=== PATIENT | male | born 1970 | race Caucasian/White ===

== ENCOUNTER 2023-07-26 21:16 | Emergency (ER) | payer BC, SELFPAY ==
[2023-07-26 21:24] VITALS: BP 123/76; PULSE 106; RESP 18; TEMP 36; O2SAT 97; BMI 33.5
--- NOTE | 2023-07-26 21:40 | ED_ITS ---
HPI - Skin/Abscess/Foreign Bdy General Date Seen: 07/26/23 Chief complaint: Skin/Abscess/Foreign Body Stated complaint: Discoloration- slightly painful Source: patient Mode of arrival: ambulatory Limitations: no limitations History of Present Illness HPI narrative: Patient is a 52-year-old male presented emergency department for potential infection to his left hand. He states yesterday he was splinted go through his glove. They removed all knee feels like it all came out. He has no pain at this time. It was near the thumb the nose today there is swelling and erythema in that area. again he has no pain and has full range of motion it came to be evaluated. Related Data Home Medications Medication Instructions Recorded Confirmed No Known Home Medications 08/17/22 08/17/22 Allergies Allergy/AdvReac Type Severity Reaction Status Date / Time penicillin V Allergy Verified 08/17/22 14:56 Review of Systems Narrative: Negative unless stated in HPI PFSH PFSH Surgical History H/O hernia repair ?Z98.890 - Other specified postprocedural states (ICD-10) ?Z87.19 - Personal history of other diseases of the digestive system (ICD-10) Social History Smoking Status: Current every day smoker What tobacco products do you use: cigarettes Do you use any of these nicotine containing products: None Second hand tobacco smoke exposure: No How often do you have a drink containing alcohol: never AUDIT-C Alcohol total score: 0 Non-prescribed substance use: denies use Exam Narrative: Exam Narrative: Const: Well-nourished, Well-developed, in no distress Eyes: PERRL, no conjunctival injection, and symmetrical lids HENT: Atraumatic external nose and ears. Moist mucous membranes. MSK:Extremities w/o deformity, Normal Active ROM, no tenderness to palpation, no swelling of the hand noted Skin: Warm, Dry. No rashes or lesions. Erythema seen to the thenar eminence Neuro: Normal Muscle tone, No focal neurological deficits. Psych: Awake, Alert, & Oriented x3. Appropriate mood and affect. Const: Vital Signs, click to edit/add: Vital Signs - 24 hr 07/26/23 21:24 Temperature 96.8 F L Pulse Rate [Left P ulse Oximeter] 106 H Respiratory Rate 18 Blood Pressure [Ri ght Upper Arm] 123/76 Pulse Oximetry 97 Oxygen Delivery Me thod Room Air Course Vital Signs Vital signs: Initial Vital Signs Temperature 96.8 F L 07/26/23 21:24 Temperature Source Temporal Artery Scan 07/26/23 21:24 Pulse Rate 106 H 07/26/23 21:24 Respiratory Rate 18 07/26/23 21:24 Blood Pressure 123/76 07/26/23 21:24 Blood Pressure Mean 91 07/26/23 21:24 Blood Pressure Position Sitting 07/26/23 21:24 Pulse Oximetry 97 07/26/23 21:24 Oxygen Delivery Method Room Air 07/26/23 21:24 Vital Signs Temperature 96.8 F L 07/26/23 21:24 Pulse Rate 106 H 07/26/23 21:24 Respiratory Rate 18 07/26/23 21:24 Blood Pressure 123/76 07/26/23 21:24 Pulse Oximetry 97 07/26/23 21:24 Oxygen Delivery Method Room Air 07/26/23 21:24 Temperature 96.8 F L 07/26/23 21:24 Pulse Rate 106 H 07/26/23 21:24 Respiratory Rate 18 07/26/23 21:24 Blood Pressure 123/76 07/26/23 21:24 Pulse Oximetry 97 07/26/23 21:24 Oxygen Delivery Method Room Air 07/26/23 21:24 MDM - Skin/Abscess/Foreign Bdy MDM Narrative Medical decision making narrative: Patient is a 52-year-old male presenting for potential hand infection. There is erythema seen around where the splinter was. He is currently having no pain. No signs of flexor tenosynovitis at this time. It is a small area of erythema considered it is the hand and was a puncture wound we will treat with antibiotics precautionary. I do not believe imaging is necessary at this time. Given very strict return precautions on worsening symptoms. He states he understands he will be discharged home. Discharge Plan Discharge Clinical Impression: Cellulitis of hand Patient Disposition: Home, Self-Care Condition: Stable Instructions: Cellulitis (ED) Additional Instructions: You can peanut picker the Keflex from [employer]. Return to the emergency department if you notice worsening infection over the next 2 days, streaking of infection up the arm, pain with movement of the thumb, swelling of the thumb, or any other concerning findings. Prescriptions: No Action No Known Home Medications Follow Up/Referrals: Provider,Not a Local [Primary Care Provider] - Stand Alone Forms: [employer] Info Instructions
== END 2023-07-26 21:54 | disposition home or self-care (01) ==
LOC: ED 21:47
PROVIDERS: Emergency Provider Student in an Organized Health Care Education/Training Program
DX: L03.114 Cellulitis of left upper limb (principal)
CPT/HCPCS: 99282; 99283